=== PATIENT | male | born 1950 | race Caucasian/White ===

== ENCOUNTER 2022-09-17 17:32 | Emergency (ER) | payer MEDICARE, OTHER, SELFPAY ==
[2022-09-17 18:40] VITALS: BP 161/76; PULSE 68; RESP 26; TEMP 36.7; O2SAT 94; BMI 33.7
--- NOTE | 2022-09-17 18:47 | XR_ITS ---
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 ; Additional info: Congestion and cough TECHNIQUE: Imaging protocol: Radiologic exam of the chest. Views: 2 views. COMPARISON: No relevant prior studies available. FINDINGS: Tubes, catheters and devices: Amplatzer device is noted. Lungs: Bilateral apical scarring. Pleural spaces: Unremarkable. No pleural effusion. No pneumothorax. Heart/Mediastinum: Unremarkable. No cardiomegaly. Bones/joints: Unremarkable. IMPRESSION: No acute findings.
--- NOTE | 2022-09-17 19:16 | EXP.UTC ---
Discharge Plan Disposition Patient Disposition: Home, Self-Care Condition: Good Prescriptions Prescriptions: New azithromycin [Zithromax Z-Ky] 250 mg tablet See Rx Instructions .ROUTE .COMPLEX 5 Days Qty: 6 0RF Rx Instructions: For 250 mg dose pack: take 500 mg today (day 1), then 250 mg for 4 days (days 2-5) benzonatate 100 mg capsule 100 mg PO TID PRN (Reason: cough) Qty: 30 0RF Referrals Follow up/Referrals: Camille Davis [Primary Care Provider] - See instructions Activity Restrictions/Add. Instructions Additional Instructions/Restrictions: Start antibiotic today. Be sure to complete entire prescription even if feeling better Monitor temp. Tylenol every 4 hours as needed and / or ibuprofen every 6 hours as needed ( As long as your primary care physician has told you that it ok to take both. For fever/aches/pains ER if no less than 101 despite Tylenol or Motrin Humidifier/vaporizer or hot steamy shower *Tessalon Perles will not cause drowsiness but use at bedtime to help stop cough so that you may get some rest. Follow up with your Family Doctor if no improvment or any worsening of symptoms Straight to ER if any worsening of shortness of breath Follow up IMMEDIATELY for new or worsening of symptoms OR no noticeable improvement over the next 48-72 hours. 911 immediately for any life threatening symptoms such as chest pain or difficulty breathing Clinical Impressions Clinical Impression: Bronchitis Instructions Patient Instructions: Acute Bronchitis, Azithromycin Discharge ED Provider: Anupama Lechuga [facility] [place] General Stated complaint: cough Mode of Arrival: Ambulatory Source of Information: Patient Limitations: No Limitations Time Seen by Provider: 09/17/22 19:17 Description of Symptoms (Recalled from Triage Doc. by RN): PATIENT C/O PRODUCTIVE COUGH WITH CHEST CONGESTION SINCE WEDNESDAY. ALSO C/O HEADACHE AND RUNNY NOSE THAT STARTED TODAY HEENT Symptoms (Recalled from RN notes): Yes Resp Symptoms (Recalled from RN notes): Yes Skin Symptoms (Recalled from RN notes): No MS Symptoms (Recalled from RN notes): No Functional Status (Recalled from RN notes): WNL History of Present Illness Provider Complaint: Patient state that he has been having cough, chest congestion, body aches, chills, headache and scratchy throat since Wednesday State that at times he is coughing up small amounts of mucous States that he has had a little fever here and there and today his cough seemed worse and drainage in the back of his throat got worse so he came in to get checked out Related Data Previous Rx's Medication Instructions Recorded azithromycin 250 mg tablet See Rx Instructions PO .COMPLEX 5 09/17/22 (Zithromax Z-Ky) days #6 tabs benzonatate 100 mg capsule 100 mg PO TID PRN cough #30 caps 09/17/22 Allergies Allergy/AdvReac Type Severity Reaction Status Date / Time morphine Allergy Verified 09/17/22 18:52 Worker's Comp Is this a Worker's Comp case?: No [facility] Disclaimer: The information contained in this section may have been updated after the patient was seen, as this information can be updated by other users. Medical History (Updated 09/17/22 @ 20:04 by Anupama Lechuga APRN) BPH (benign prostatic hyperplasia) Cancer History of anemia History of stroke Hyperlipidemia Hypertension Kidney stone Social History (Updated 09/17/22 @ 18:51 by Kemi Carmen RN) Smoking Status: Unknown if ever smoked alcohol intake: never current occupational status: other Travel in the last 8 weeks: None ROS Obtained: Yes All systems reviewed & no additional complaints except as documented and Yes Systems reviewed as appropriate & no additional complaints except as documented Constitutional Constitutional: Reports system reviewed and no additional complaints, except as documented, Reports as per HPI, Reports body ache, Reports chills, Reports
[2022-09-17 19:38] LABS: UTC Influenza A Antigen Negative (Negative); UTC Influenza B Antigen Negative (Negative)
[2022-09-17 19:38] LABS: UTC Strep Screen (Rapid) Negative (Negative)
[2022-09-17 20:23] VITALS: BP 161/76; PULSE 68; RESP 26; TEMP 36.7; O2SAT 99
== END 2022-09-17 20:28 | disposition home or self-care (01) ==
PROVIDERS: Emergency Provider Nurse Practitioner; PCP Registered Nurse
DX: J40 Bronchitis, not specified as acute or chronic (principal)
CPT/HCPCS: 71046; 87804; 87880; 94640; 96372; 99283

== ENCOUNTER → 2025-05-15 08:00 | Outpatient (RCR) | payer MEDICARE, OTHER, SELFPAY | LOC: PT 05-08 08:44 | PROVIDERS: PCP Internal Medicine; Visit Provider Physician Assistant Medical | DX: M76.32 Iliotibial band syndrome, left leg (principal); M76.31 Iliotibial band syndrome, right leg | CPT/HCPCS: 97110; 97162; 97530 ==

== ENCOUNTER 2025-06-05 11:00 | Outpatient (RCR) | payer MEDICARE, OTHER, SELFPAY | END 2025-06-05 23:59 | disposition home or self-care (01) | LOC: PT 11:00 | PROVIDERS: PCP Internal Medicine; Visit Provider Physician Assistant Medical | DX: M76.32 Iliotibial band syndrome, left leg (principal); M76.31 Iliotibial band syndrome, right leg | CPT/HCPCS: 97110; 97530 ==

== ENCOUNTER 2025-06-22 11:53 | Outpatient (RCR) | payer MEDICARE, OTHER, SELFPAY | END 2025-06-22 23:59 | disposition home or self-care (01) | LOC: PT 11:53 | PROVIDERS: PCP Internal Medicine; Visit Provider Physician Assistant Medical | DX: M76.32 Iliotibial band syndrome, left leg (principal); M76.31 Iliotibial band syndrome, right leg ==